=== PATIENT | female | born 1980 | race Caucasian/White ===

== ENCOUNTER 2021-12-22 08:59 | Outpatient (CLI) | payer OTHER, SELFPAY ==
--- NOTE | ~2021-12-22 | US_ITS ---
EXAMINATION: US pelvic complete DATE: 12/22/2021 09:52 INDICATION: Retained IUD Comparison:No prior studies for comparison. TECHNIQUE: Multiple transabdominal sonographic images of the pelvis performed. FINDINGS: The uterus measures 8.3 x 4.5 x 3.5 cm. The endometrial complex measures 5 mm. IUD is not d efinitely identified. Examination is limited by patient body habitus. The right ovary measures 2.6 x 2.2 x 2.2 cm and the left ovary measures 3.1 x 2.1 x 2.2 cm. There ar e small follicles in each ovary. Doppler signal identified in the left ovary but not definitely seen in the right. There is no free fluid in the pelvis. There are no abnormal masses seen on either side. IMPRESSION: 1. Limited unremarkable study of the pelvis. IUD does not definitely visualized. Reviewed, dictated and finalized at location A. IMPRESSION: 1. Limited unremarkable study of the pelvis. IUD does not definitely visualized .
== END 2021-12-22 09:00 | disposition home or self-care (01) ==
PROVIDERS: PCP Nurse Practitioner Family; Visit Provider Obstetrics & Gynecology
DX: T83.39XA Other mechanical complication of intrauterine contraceptive device, initial encounter (principal)
CPT/HCPCS: 76856

== ENCOUNTER 2023-02-07 12:24 | Outpatient (CLI) | payer OTHER, SELFPAY ==
--- NOTE | ~2023-02-07 | US_ITS ---
EXAMINATION: US thyroid DATE: 02/07/2023 13:00 INDICATION: Megan thyroiditis. TECHNIQUE: Multiple ultrasound images of the thyroid were obtained. COMPARISON: None. FINDINGS: The right thyroid lobe measures 5.8 x 2.0 x 1.8 cm. The left thyroid lobe measures 5.0 x 1.3 x 2.7 c m. The thyroid is diffusely heterogeneous and hypoechoic. Vascularity is normal. In the right thyroi d lobe, there is a 2.0 cm solid, hypoechoic, wider than tall nodule with ill-defined margin and perip heral calcifications (TI-RADS TR4). IMPRESSION: 1. Heterogeneous thyroid, likely chronic lymphocytic (Megan) thyroiditis. 2. 2.0 cm right thyroid nodule. Consider ultrasound-guided fine needle aspiration. Reviewed, dictated and finalized at location A. IMPRESSION: 1. Heterogeneous thyroid, likely chronic lymphocytic (Megan) thyroiditis. 2. 2.0 cm right thyroid nodule. Consider ultrasound-guided fine needle aspirati on.
== END 2023-02-07 12:25 | disposition home or self-care (01) ==
PROVIDERS: PCP Nurse Practitioner Family; Visit Provider Nurse Practitioner Family
DX: E06.3 Autoimmune thyroiditis (principal)
CPT/HCPCS: 76536